=== PATIENT | female | born 1980 | race Caucasian/White ===

== ENCOUNTER 2016-12-03 12:24 | Emergency (ER) | payer MEDICAID ==
[2016-12-03 12:28] VITALS: TEMP 98.1; O2SAT 100
[2016-12-03] MEDS ORDERED: Sodium Chloride 0.9% 1,000 ML ONE ×2 (12:37→14:53)
[2016-12-03] MEDS ORDERED: Sodium Chloride 0.9% 1,000 ML IV ONE ×2 (12:43→12:45)
--- NOTE | 2016-12-03 12:50 | C.PDOC ---
History Of Present Illness 36 year old female who presents to the ER via EMS with a complaint of abdominal pain and vomiting for the past 2 days. Denies recent travel/sick contact, fever , chills, or diarrhea. Time Seen by Provider: 12/03/16 12:28 Chief Complaint (Nursing): Abdominal Pain History Per: Patient History/Exam Limitations: no limitations Onset/Duration Of Symptoms: Days Current Symptoms Are (Timing): Still Present Location Of Pain/Discomfort: Epigastric Radiation Of Pain To:: None Quality Of Discomfort: Unable To Describe Associated Symptoms: Vomiting. denies: Fever, Chills, Diarrhea Exacerbating Factors: None Alleviating Factors: None Recent travel outside of the [place]: No Abnormal Vaginal Bleeding: No Past Medical History Reviewed: Historical Data, Nursing Documentation, Vital Signs Vital Signs: Last Vital Signs Temp 98.1 F 12/03/16 12:27 Pulse 56 L 12/03/16 15:20 Resp 16 12/03/16 15:20 BP 167/85 H 12/03/16 15:20 Pulse Ox 100 12/03/16 15:33 - Medical History PMH: Anxiety, Arthritis, Asthma, Bronchitis, COPD, HIV, Kidney Stones, Migraine , Sexually Transmitted Disease (HERPES, HIV) Surgical History: Family History: States: Unknown Family Hx - Social History Hx Tobacco Use: Yes Hx Alcohol Use: Yes Hx Substance Use: No - Immunization History Hx Tetanus Toxoid Vaccination: Yes Hx Influenza Vaccination: Yes Hx Pneumococcal Vaccination: No (unsure) Review Of Systems Constitutional: Negative for: Fever, Chills Gastrointestinal: Positive for: Vomiting, Abdominal Pain. Negative for: Diarrhea Physical Exam - Physical Exam Appears: Non-toxic, Other (Actively Vomiting) Skin: Normal Color, Warm, Dry Head: Atraumatic, Normacephalic Oral Mucosa: Moist Chest: Symmetrical, No Tenderness Cardiovascular: Rhythm Regular, No Murmur Respiratory: Normal Breath Sounds, No Rales, No Rhonchi, No Wheezing Gastrointestinal/Abdominal: Soft, Tenderness (Mild upper epigastric) Back: No CVA Tenderness Neurological/Psych: Oriented x3, Normal Speech, Normal Cognition Gait: Steady ED Course And Treatment - Laboratory Results Result Diagrams: 12/03/16 12:51 12/03/16 12:51 Lab Interpretation: No Acute Changes Urine POC: Negative O2 Sat by Pulse Oximetry: 100 (Room air) Pulse Ox Interpretation: Normal - CT Scan/US No standard instances Other Rad Studies (CT/US): Read By Radiologist, Radiology Report Reviewed CT/US Interpretation: FINDINGS: LOWER THORAX: No evidence of acute pathology or mass lesion in the liver. LIVER: Unremarkable. No gross lesion or ductal dilatation. GALLBLADDER AND BILE DUCTS: Unremarkable. PANCREAS: Unremarkable. No gross lesion or ductal dilatation. SPLEEN: Unremarkable. ADRENALS: Mild diffuse adrenal gland wall thickening seen P. KIDNEYS AND URETERS: There are multiple cystic lesions seen in both kidneys. There are bilateral nonobstructing renal calculi. The largest calculus seen at the lower pole in the left kidney measures 9 millimeter. There is mild right hydronephrosis and hydroureter up to 5 millimeter calculus at the right UV junction. VASCULATURE: Unremarkable. No aortic aneurysm. BOWEL: Unremarkable. No obstruction. No gross mural thickening. APPENDIX: Unremarkable. Normal appendix. PERITONEUM: Unremarkable. No free fluid. No free air. LYMPH NODES: Unremarkable. No enlarged lymph nodes. BLADDER: Diffuse urinary bladder wall thickening is noted. REPRODUCTIVE: Unremarkable. BONES: No acute fracture. OTHER FINDINGS: None. IMPRESSION: Bilateral renal cysts. The largest cyst seen exophytic from the upper pole of the left kidney measures 5.1 centimeter. Bilateral nonobstructing renal calculi. The largest calculus seen at the lower pole of the left kidney measures 9 millimeter. Mild right hydronephrosis and hydroureter up to 5 millimeter calculus at the right UV junction. Diffuse urinary bladder wall thickening. Correlate clinically for cystitis. Progress Note: Blood work and urinalysis ordered. Zofran and IV fluids administered. Treated with toradol 30 mg IV. On re-evaluation abdomen soft non -tender. In no distress, feeling better Reassessment Condition: Improved Disposition - Disposition Referrals: Nicole Duvall MD [Staff Provider] - Disposition: HOME/ ROUTINE Disposition Time: 16:00 Condition: STABLE Additional Instructions: Return to ED if any increase symptoms Follow up with urology for further evaluation Prescriptions: Naproxen [Naprosyn] 1 tab PO BID PRN #25 tab PRN Reason: Pain Ondansetron ODT [Zofran ODT] 1 odt PO BID PRN #6 odt PRN Reason: Nausea/Vomiting Tamsulosin HCl [Flomax] 0.4 mg PO DAILY #5 cap.er.24h Instructions: Renal Colic (ED) Forms: [employer] (Lithuanian) - POA Present On Arrival: None - Clinical Impression Clinical Impression: Vomiting, Renal colic - Scribe Statement The provider has reviewed the documentation as recorded by the Scribjazmin Maldonado All medical record entries made by the Scribe were at my direction and personally dictated by me. I have reviewed the chart and agree that the record accurately reflects my personal performance of the history, physical exam, medical decision making, and the department course for this patient. I have also personally directed, reviewed, and agree with the discharge instructions and disposition.
[2016-12-03 12:54] LABS: BASO # 0.1 K/uL (0.0-0.2); BASO % 0.6 % (0.0-2.0); EOS # 0.1 K/uL (0.0-0.7); EOS % 0.4 % (0.0-4.0); LYMPH # 1.2 K/uL (1.0-4.3); LYMPH % 9.6 % (20.0-40.0); MEAN CELL VOLUME 79.7 fL (81.0-99.0); MEAN CORPUSCULAR HEMOGLOBIN 25.8 pg (27.0-31.0); MEAN CORPUSCULAR HGB CONC 32.4 g/dL (33.0-37.0); MEAN PLATELET VOLUME 7.9 fL (7.2-11.7); MONO # 1.4 K/uL (0.0-0.8); MONO % 11.5 % (0.0-10.0); PLATELET COUNT 413 K/uL (130-400); WHITE BLOOD COUNT 12.1 K/uL (4.8-10.8)
[2016-12-03 13:01] LABS: CHLORIDE 102 mmol/L (98-107)
[2016-12-03 13:02] LABS: POTASSIUM 3.5 mmol/L (3.6-5.2); SODIUM 141 mmol/L (132-148)
[2016-12-03 13:04] LABS: ALB/GLOB RATIO 1.1 (1.0-2.1); BILIRUBIN,TOTAL 1.5 mg/dL (0.2-1.3); CARBON DIOXIDE 24 mmol/L (22-30); GFR AFRICAN-AMERICAN > 60; TOTAL PROTEIN 7.6 g/dL (6.3-8.3)
[2016-12-03 13:05] LABS: ALKALINE PHOSPHATASE 102 U/L (38-126); ALT/SGPT 45 U/L (9-52); AST/SGOT 42 U/L (14-36); BLOOD UREA NITROGEN 9 mg/dL (7-17); CALCIUM 9.1 mg/dl (8.6-10.4); GLUCOSE,RANDOM 106 mg/dL (65-105)
[2016-12-03 13:37] LABS: LARGE PLATELETS PRESENT; NEUTROPHIL 80 % (50-75); TOTAL CELLS COUNTED 100
[2016-12-03 14:01] LABS: RBC URINE 132 /hpf (0-3); URINE BILIRUBIN NEGATIVE (NEGATIVE); URINE BLOOD 3+ (NEGATIVE); URINE COLOR Yellow (YELLOW); URINE GLUCOSE (UA) NORMAL (Normal); URINE KETONE NEGATIVE (NEGATIVE); URINE LEUKOCYTE ESTERASE NEG Leu/uL (Negative); URINE PROTEIN 1+ mg/dL (NEGATIVE); URINE UROBILINOGEN NORMAL mg/dL (0.2-1.0); WBC URINE 1 /hpf (0-5)
--- NOTE | 2016-12-03 15:16 | CT ---
PROCEDURE: CT Abdomen and Pelvis without intravenous contrast HISTORY: Pain COMPARISON: None. TECHNIQUE: Axial and reformatted coronal and sagittal CT images of the abdomen and pelvis were obtained without IV or oral contrast administration P. Contrast Dose: 0 Radiation dose: Total exam DLP = 893.81 mGy-cm. This CT exam was performed using one or more of the following dose reduction techniques: Automated exposure control, adjustment of the mA and/or kV according to patient size, and/or use of iterative reconstruction technique. FINDINGS: LOWER THORAX: No evidence of acute pathology or mass lesion in the liver. LIVER: Unremarkable. No gross lesion or ductal dilatation. GALLBLADDER AND BILE DUCTS: Unremarkable. PANCREAS: Unremarkable. No gross lesion or ductal dilatation. SPLEEN: Unremarkable. ADRENALS: Mild diffuse adrenal gland wall thickening seen P KIDNEYS AND URETERS: There are multiple cystic lesions seen in both kidneys. There are bilateral nonobstructing renal calculi. The largest calculus seen at the lower pole in the left kidney measures 9 millimeter. There is mild right hydronephrosis and hydroureter up to 5 millimeter calculus at the right UV junction. VASCULATURE: Unremarkable. No aortic aneurysm. BOWEL: Unremarkable. No obstruction. No gross mural thickening. APPENDIX: Unremarkable. Normal appendix. PERITONEUM: Unremarkable. No free fluid. No free air. LYMPH NODES: Unremarkable. No enlarged lymph nodes. BLADDER: Diffuse urinary bladder wall thickening is noted. REPRODUCTIVE: Unremarkable. BONES: No acute fracture. OTHER FINDINGS: None. IMPRESSION: Bilateral renal cysts. The largest cyst seen exophytic from the upper pole of the left kidney measures 5.1 centimeter. Bilateral nonobstructing renal calculi. The largest calculus seen at the lower pole of the left kidney measures 9 millimeter. Mild right hydronephrosis and hydroureter up to 5 millimeter calculus at the right UV junction. Diffuse urinary bladder wall thickening. Correlate clinically for cystitis.
[2016-12-03 15:31] VITALS: PULSE 56; RESP 16
[2016-12-03 16:16] VITALS: BP 148/82
== END 2016-12-03 16:18 | disposition home or self-care (01) ==
LOC: C.ER 12:24
DX: N13.2 Hydronephrosis with renal and ureteral calculous obstruction (principal); R11.10 Vomiting, unspecified
CPT/HCPCS: 74176; 80053; 81001; 83690; 84703; 85025; 96361; 96374; 96375; 99285; J1885; J2405; J7040

== ENCOUNTER 2016-12-04 23:36 | Emergency (ER) | payer MEDICAID ==
[2016-12-05] VITALS: RESP 16
[2016-12-05] MEDS ORDERED: Sodium Chloride 0.9% 1,000 ML IV ONE (00:05)
[2016-12-05] MEDS ORDERED: Sodium Chloride 0.9% 1,000 ML ONE (00:15)
--- NOTE | 2016-12-05 01:46 | C.PDOC ---
History Of Present Illness 36 y/o female presents to the ED for evaluation of lower back and lower abdominal pain which began around 3 days ago. Patient was evaluated in ED yesterday with similar complaints. During her visit, patient underwent a CT scan which showed evidence of a kidney stone. Patient was discharged with Rx for Flomax, Zofran and Naproxen. Patient notes she's still experiencing a sharp , shooting pain despite taking her medications and reports for further evaluation. Patient also reports headache and nausea. She denies fever, chills, hematuria,changes in bowel habits. Time Seen by Provider: 12/04/16 23:57 Chief Complaint (Nursing): Abdominal Pain History Per: Patient History/Exam Limitations: no limitations Onset/Duration Of Symptoms: Days Current Symptoms Are (Timing): Still Present Reports Recently: Seen In ED, Treated By A Physician Additional History Per: Patient Past Medical History Reviewed: Historical Data, Nursing Documentation, Vital Signs Vital Signs: Last Vital Signs Temp 98.6 F 12/05/16 03:05 Pulse 77 12/05/16 03:05 Resp 16 12/05/16 03:05 BP 125/81 12/05/16 03:05 Pulse Ox 100 12/05/16 03:05 - Medical History PMH: Anxiety, Arthritis, Asthma, Bronchitis, COPD, HIV, Kidney Stones, Migraine , Chronic Kidney Disease, Sexually Transmitted Disease (HERPES, HIV) Surgical History: Family History: States: Unknown Family Hx - Social History Hx Tobacco Use: Yes Hx Alcohol Use: Yes Hx Substance Use: No - Immunization History Hx Tetanus Toxoid Vaccination: Yes Hx Influenza Vaccination: Yes Hx Pneumococcal Vaccination: No (unsure) Review Of Systems Constitutional: Negative for: Fever, Chills Gastrointestinal: Positive for: Nausea, Abdominal Pain (lower ). Negative for: Diarrhea, Constipation Genitourinary: Negative for: Hematuria Musculoskeletal: Positive for: Back Pain Neurological: Positive for: Headache (migraine ) Physical Exam - Physical Exam Appears: Non-toxic, No Acute Distress Skin: Normal Color, Warm, Dry Head: Atraumatic, Normacephalic Eye(s): bilateral: Normal Inspection Oral Mucosa: Moist Neck: Supple Chest: Symmetrical, No Deformity Cardiovascular: Rhythm Regular, No Murmur Respiratory: Normal Breath Sounds, No Rales, No Rhonchi, No Wheezing Gastrointestinal/Abdominal: Soft, No Tenderness, No Guarding, No Rebound Back: Normal Inspection, No Vertebral Tenderness, No Paraspinal Tenderness Extremity: Normal ROM, Capillary Refill (less than 2 seconds ) Neurological/Psych: Oriented x3, Normal Speech, Normal Cognition Gait: Steady ED Course And Treatment O2 Sat by Pulse Oximetry: 99 (on RA) Pulse Ox Interpretation: Normal Medical Decision Making Medical Decision Making: Impression: 36 y/o female with lower abdominal pain, back pain, nausea Plan: * labs * Reglan IV * Toradol IV * IV Fluids * reassess and disposition Progress: Patient received Reglan IV, Toradol IV, and IV Fluids. Upon reevaluation patient reports pain has improved. Encourage patient to follow up with urologist and drink fluids and take pain medications as needed Disposition Counseled Patient/Family Regarding: Diagnosis, Need For Followup, Rx Given - Disposition Disposition: HOME/ ROUTINE Disposition Time: 01:45 Condition: STABLE Additional Instructions: Continue taking medications prescribed to you yesterday. 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 - Scribe Statement The provider has reviewed the documentation as recorded by the Scribe ([place]) All medical record entries made by the Scribe were at my direction and personally dictated by me. I have reviewed the chart and agree that the record accurately reflects my personal performance of the history, physical exam, medical decision making, and the department course for this patient. I have also personally directed, reviewed, and agree with the discharge instructions and disposition.
[2016-12-05 03:06] VITALS: BP 125/81; PULSE 77; TEMP 98.6
[2016-12-05 03:14] VITALS: O2SAT 99
== END 2016-12-05 03:05 | disposition home or self-care (01) ==
LOC: C.ER 23:36
DX: N23 Unspecified renal colic (principal)
CPT/HCPCS: 96361; 96374; 96375; 99284; J1885; J2765; J7040